=== PATIENT | female | born 1975 | race Caucasian/White ===

== ENCOUNTER 2025-07-05 01:12 | Day surgery (SDC) | payer OTHER, SELFPAY ==
[2025-06-30 13:14] VITALS: BMI 25.9
--- NOTE | 2025-06-30 13:21 | PC.NURSE ---
[facility] has started construction of its new state of the art ER which will open Spring 2026. With this, we anticipate parking may be a challenge for some our surgical patients and families. Parking spaces are limited but are available for all Surgical, obstetrics, and ER patients sharing this lot. If you arrive and find you are having a hard time finding a parking space, please note that we understand the challenges, please drive around the hospital and park near Hospital Entrance 1. When you enter this entrance, you can ask a volunteer to direct or take you back to the surgical waiting area to check in. We appreciate everyone?s understanding of these expected challenges while we build for your future. Report to the Outpatient Waiting Room, entrance under the green pavilion located off [address], at time _0830_ on date _[phone]_. Planned Procedure Time: _1030_.? Time changes happen often and if your time is changed the preop area will call you the afternoon before. - You and your visitor will be asked to self-screen and do not enter if you have any COVID symptoms. Please call surgeon if you need to reschedule. - A mask is optional within the hospital at this time. Patients may have clear liquids (water, carbonated beverages, clear teas, apple juice) until 3 hours prior to surgery with a maximum of 20 ounces. - No food from midnight until time of surgery and no smoking, or chewing tobacco (or any form of nicotine). No chewing gum, candy or mints. Take only the following medications with a SIP of water on the morning of surgery: ___None____ DO NOT STOP ANY OF YOUR OTHER PRESCRIPTION MEDICATIONS PRIOR TO SURGERY EXCEPT THE FOLLOWING Hold all vitamins and supplements for 3 days per anesthesiologist. Medications to discontinue per physician Date to take last dose Please no make-up, nail taiwanese, hairspray, perfume, deodorant, or body powder the day of surgery.? No jewelry (including any body piercings) or valuables the day of surgery, leave them at home.? Please take a shower or bath the night before, or the morning of, surgery with an antibacterial soap.? Wear comfortable, loose fitting clothing.? - Jewelry must be removed prior to entering the operating room.? Rings and piercings that are not removed may be cut off. - The hospital will not accept responsibility for valuables.? - Please leave all valuables, including medications, at home the day of surgery. If you are going home after surgery, a licensed sprinkling truck driver must drive you home.? - NO public transportation without another adult if you receive anesthesia. - We recommend that an adult stay with you for 24 hours following discharge. - We also recommend that you do not drive, make important decision, drink alcoholic beverages, or take any drugs that were not prescribed by your health care provider for at least 24 hours after your discharge time. Follow any additional instructions given to you from your surgeon. Telephone instructions given to _Yoselin__and asked if any additional questions and then verbalized understanding. Patient advised to call surgeon office or pre surgery nurse liaison [phone] if any additional questions.
[2025-07-05 06:20] VITALS: BP 114/71; PULSE 70; RESP 16; TEMP 37.1; O2SAT 98
[2025-07-05] MEDS: ACETAMINOPHEN 500 MG TABLET 1000 MG PO (06:30)
[2025-07-05] MEDS: LACTATED RINGERS 1,000 ML 30 ML IV CONT (06:35)
[2025-07-05 06:46] LABS: BEDSIDEPREGUCG Negative (Negative)
--- NOTE | 2025-07-05 07:24 | WPDHPUPDATE1 ---
History and Physical Update Update Date/Time: 07/05/25 07:24 History and Physical has been reviewed, including an updated exam of the patient. There are NO changes in the patient's condition. Risks, benefits, and alternatives have been discussed and questions answered. Patient agrees to proceed with procedure.
--- NOTE | 2025-07-05 07:24 | PM.HPGS ---
History of Present Illness History of Present Illness Consent: Risks, benefits, and alternatives have been discussed and questions answered. Patient agrees to proceed with procedure. Chief complaint: Menorrhagia Narrative: Yoselin Estrada is a 49 year old female with heavy menstrual cycles. Pelvic ultrasound shows fibroids. It was recommended to undergo D&C hysteroscopy. Risks of infection, bleeding, perforation, and possible pathology are reviewed. Patient voices understanding and agrees to proceed. Review of Systems Review of Systems: not repeated day of surgery; patient states no changes in status COUNT INCLUDES THE [facility] Past Medical History Medical History (Updated 07/05/25 @ 07:26 by Fanta Herrera MD) Asthma Surgical History Surgical History (Updated 07/05/25 @ 07:25 by Fanta Herrera MD) History of oral surgery History of X2 Social History Social History Smoking status: Never smoker Living arrangements: with family Spiritual care concerns: No Meds Home Medications and Allergies Home Medications ?Medication ?Instructions ?Recorded ?Confirmed ?Type Lactobacillus acidophilus 10 10,000 mmu cells PO DAILY 06/30/25 07/05/25 History billion cell capsule (Probacap) patydha root extract 300 mg 2,100 mg PO DAILY 06/30/25 07/05/25 History tablet cetirizine 10 mg tablet (24Hour 10 mg PO HS 06/30/25 07/05/25 History Allergy) magnesium oxide 400 mg (241.3 mg 400 mg PO HS 06/30/25 07/05/25 History magnesium) tablet omega 3 350 mg-dha 235 mg-epa 90 1 cap PO DAILY 06/30/25 07/05/25 History mg-fish oil 597 mg capsule,delay rel ([place]-3) Allergies Allergy/AdvReac Type Severity Reaction Status Date / Time No Known Allergies Allergy Unknown Verified 07/05/25 06:42 Vital Signs Vital Signs - 24 hr 07/05/25 06:20 Temperature 98.7 F Pulse Rate 70 Respiratory Rate 16 Blood Pressure 114/71 Pulse Oximetry 98 Oxygen Delivery Room Air Exam Const: General: healthy appearing and alert Orientation/consciousness: patient oriented x3 Resp: Effort & Inspection: normal respiratory effort Auscultation: clear to auscultation bilaterally Cardio: Rate: regular rate Rhythm: regular rhythm GI: GI Palp: Yes Soft to palpation, No Tenderness to palpation present (GI) and No Palpable mass present : External Female Exam: normal external appearance Speculum Exam - Vagina: normal appearance of the vagina and normal vaginal discharge Speculum Exam - Cervix: normal appearance of the cervix Bimanual exam- vagina & uterus: enlarged (Ten week size) Bimanual Exam- Adnexa, other: normal adnexae and No adnexal tenderness Neuro: General: patient oriented x3 Assessment and Plan Assessment and plan (1) Menorrhagia: Code(s): N92.0 - Excessive and frequent menstruation with regular cycle Status: Acute Assessment and Plan: Plan to proceed with D&C hysteroscopy with possible hysteroscopic myomectomy
--- NOTE | 2025-07-05 07:43 | WPDANESEPPF ---
Anes - Initial Pre Proc Eval Procedure: Operation Date: 07/05/25 08:15 Proposed Procedures p Hysteroscopy Dilation and Curettage - Fanta Herrera MD Date/Time: 07/05/25 07:43 Surgeon: Fanta Herrera MD Pre Op Diagnosis: Menorrhagia Patient Data Age: 49 Gender: F Height: 1.75 m Weight: 81.9 kg Last Vital Signs Temp 37.1 C 07/05/25 06:20 Pulse 70 07/05/25 06:20 Resp 16 07/05/25 06:20 BP 114/71 07/05/25 06:20 Pulse Ox 98 07/05/25 06:20 O2 Del Method Room Air 07/05/25 06:20 Allergies Allergy/AdvReac Type Severity Reaction Status Date / Time No Known Allergies Allergy Unknown Verified 07/05/25 06:42 Home Medications ?Medication ?Instructions ?Recorded ?Confirmed ?Type Lactobacillus acidophilus 10 10,000 mmu cells PO DAILY 06/30/25 07/05/25 History billion cell capsule (Probacap) patydha root extract 300 mg 2,100 mg PO DAILY 06/30/25 07/05/25 History tablet cetirizine 10 mg tablet (24Hour 10 mg PO HS 06/30/25 07/05/25 History Allergy) magnesium oxide 400 mg (241.3 mg 400 mg PO HS 06/30/25 07/05/25 History magnesium) tablet omega 3 350 mg-dha 235 mg-epa 90 1 cap PO DAILY 06/30/25 07/05/25 History mg-fish oil 597 mg capsule,delay rel ([place]-3) Laboratory Tests 07/05/25 06:30 POC Urine HCG, Qual Negative (Negative) Patient hx anesthesia problems: none Family hx anesthesia problems: none Results Review: All pre-operative results and documents have been reviewed as part of the pre-operative evaluation. [facility] Past Medical History Medical History Asthma Surgical History Surgical History History of oral surgery History of X2 Social History Social History Smoking status: Never smoker Living arrangements: with family Spiritual care concerns: No Anes - Eval Final PreProcedure Day of Procedure 07/05/25 07:43 Patient weight: overweight Heart: regular rate and rhythm Lungs: clear to auscultation Airway: Mallampati scale class II Neurological: alert and oriented Last oral intake: >/= 8 hours ASA classification: II Emergent: no Anesthetic plan: proceed Anesthesia type and monitoring: general GIVS and standard monitoring Results Review: All pre-operative results and documents have been reviewed as part of the pre-operative evaluation. Informed Consent: The patient's anesthetic plan and its attendant risks and benefits were discussed with the patient/family/POA. Questions were solicited and answers provided to the satisfaction of the patient/family/POA.
--- NOTE | 2025-07-05 08:21 | S_PTH ---
PATIENT: Yoselin Estrada LOC: [facility] U#:[id number] AGE/SX: 49/F ROOM: RE07/05/[address]: Fanta Herrera MD : 1975 BED: DIS: 07/05/2025 SPEC #: [id number] RECD: 07/05/25 09:10 STATUS: FAY REQ #: [id number] FLASH: 07/05/25 08:[address]: Fanta Herrera DEPT: [facility] RECD BY: Sharron Sullivan Tissues: A - Endometrial Curettings Procedures: Hematoxylin and Eosin Stain Gross and Microscopic Level 4
[2025-07-05] MEDS: KETOROLAC 30 MG/ML VIAL (*BKC) IV PUSH (08:22)
--- NOTE | 2025-07-05 08:25 | SUR.OPER ---
fluid deficit 50
--- NOTE | 2025-07-05 08:26 | W.PM.PROC2 ---
Procedure Note - Detailed Date of Procedure 07/05/25 Pre-op Diagnosis Menorrhagia Post-op Diagnosis Same Procedure Performed D&C hysteroscopy Surgeon Fanta Herrera MD Anesthesia MAC Findings The internal os is stenotic. The uterus sounds to 8cm. The endometrium appears grossly normal. Description of Procedure The patient was taken to the operating room and placed under anesthesia in the dorsal lithotomy position. She was prepped and draped in the usual sterile fashion. [place] speculum was placed in the vagina and the cervix grasped on the anterior lip with tenaculum. Internal cervical stenosis is noted when the uterus was attempted to be sounded. The os Finders were used and the internal os was able to be opened. The cervix was dilated to a 5 Hegar. The uterus is sounded to 8cm. The diagnostic hysteroscope was placed and with the above-stated findings it was removed. The endometrium was curetted with a sharp curette until a good uterine cry was noted in all areas. Instruments are removed. Sponge, needle, and instrument counts are correct per the OR staff. The patient was taken to recovery in stable condition. Estimated Blood Loss 5 Drains No Packing No Pathology Yes (Endometrial curettings) Complications No immediate complications Condition Stable Disposition PACU
[2025-07-05 08:27] VITALS: BP 149/96; PULSE 56; RESP 14; O2SAT 100
[2025-07-05] MEDS: fentaNYL CITRATE INJ (*CRX) 100 MCG/2 ML VIAL 25 MCG IV PUSH (08:40)
[2025-07-05 08:57] VITALS: BP 140/63; PULSE 57; RESP 16
[2025-07-05] MEDS: oxyCODONE HCL (*CRX) 5 MG TAB IR PO (09:07)
[2025-07-05 09:27] VITALS: BP 132/85; PULSE 57; RESP 16
[2025-07-05 09:40] VITALS: BP 117/85; PULSE 49; RESP 16
== END 2025-07-05 09:45 | disposition home or self-care (01) ==
PROVIDERS: Visit Provider Obstetrics & Gynecology Gynecology
PROC: 0U5B8ZZ Destruction of Endometrium, Via Natural or Artificial Opening Endoscopic (ICD-10-PCS; CPT 58563; principal; 2025-07-05 08:15)
DX: N92.0 Excessive and frequent menstruation with regular cycle (principal)
CPT/HCPCS: 58558; 88305; A9270; J1100; J1885; J2003; J2250; J2405; J2704; J3010; J7120